=== PATIENT | female | born 1995 | race Caucasian/White ===

== ENCOUNTER 2017-11-12 04:40 | Inpatient (IN) | payer BC ==
[~2017-11-12] VITALS: Ht 160 cm; Wt 70.0 kg
[~2017-11-12 04:40] MED LIST: ZOFRAN4 MG PO
[2017-11-12 05:12] LABS: HEMATOCRIT 35.2 % (36.0-46.0); HEMOGLOBIN 11.9 G/DL (11.9-15.5); MCHC 33.8 G/DL (30.0-36.0); MCV 85.9 FL (83-99); PLATELET COUNT 213 K/uL (156-360); RBC DIS.WIDTH-CV 13.2 % (11.8-14.6); RBC DIS.WIDTH-SD 41.2 % (39-53); WHITE BLOOD COUNT 7.6 K/uL (4.1-10.2)
[2017-11-12 05:46] LABS: QUANTITATIVE HCG < 4.0 MIU/ML
[2017-11-12 05:58] LABS: CHLORIDE 104 mEq/L (99-109); POTASSIUM 3.8 mEq/L (3.7-5.4); SODIUM 137 mEq/L (136-147)
[2017-11-12 06:00] LABS: GLUCOSE 123 mg/dL (70-99)
[2017-11-12 06:02] LABS: TOTAL BILIRUBIN 1.1 mg/dL (0.0-1.0)
[2017-11-12 06:03] LABS: ALKALINE PHOSPHATASE 60 IU/L (3-129); CREATININE 0.8 mg/dL (0.6-1.3); GFR ESTIMATE (CALCULATED) > 59 mL/min/
[2017-11-12 06:05] LABS: AST (GOT) 14 IU/L (2-34); UREA NITROGEN (BUN) 12 mg/dL (9-23)
[2017-11-12 06:06] LABS: ALT (GPT) 12 IU/L (3-49)
[2017-11-12 06:07] LABS: LIPASE 17 U/L (1.0-51.0)
[2017-11-12 07:22] LABS: APPEARANCE SL.HAZY ((CLEAR)); BILIRUBIN NEGATIVE; BLOOD NEGATIVE; COLOR YELLOW ((YELLOW)); GLUCOSE (STRIP) NEGATIVE; KETONES 5; LEUKOCYTES TRACE; NITRITE NEGATIVE; PROTEIN (STRIP) 30; SPECIFIC GRAVITY 1.042 (1.000-1.030); UROBILINOGEN 0.2 MG/DL (0.2-1.0)
[2017-11-12 07:39] LABS: BACTERIA NONE SEEN /HPF; EPITHELIAL CELLS 1+ /HPF; MUCUS 2+ /LPF; RED BLOOD CELLS 0-5 /HPF (0-5); UCUL ADDED? YES
[2017-11-12] MEDS ORDERED: ADVIL200 MG PO (07:40)
[2017-11-12 13:34] VITALS: BP 107/69
[2017-11-12 15:16] VITALS: BP 109/60
[2017-11-12 20:20] VITALS: BP 113/60
[2017-11-12 23:38] VITALS: BP 107/61
[2017-11-13 03:48] VITALS: BP 110/60
[2017-11-13 07:02] LABS: HEMATOCRIT 28.5 % (36.0-46.0); MCH 28.3 PG (29.0-34.0); MCHC 31.9 G/DL (30.0-36.0); MCV 88.8 FL (83-99); PLATELET COUNT 189 K/uL (156-360); RBC DIS.WIDTH-CV 13.6 % (11.8-14.6); RBC DIS.WIDTH-SD 44.4 % (39-53); WHITE BLOOD COUNT 13.3 K/uL (4.1-10.2)
[2017-11-13 07:05] LABS: HEMOGLOBIN 9.1 G/DL (11.9-15.5); RED BLOOD COUNT 3.21 M/uL (3.80-5.20)
[2017-11-13 08:37] VITALS: BP 99/56
[2017-11-13 12:00] VITALS: BP 112/63
[2017-11-13 16:02] VITALS: BP 106/64
[2017-11-13 19:47] VITALS: BP 118/67
[2017-11-13 23:22] VITALS: BP 118/61
[2017-11-14 03:36] VITALS: BP 119/56
[2017-11-14 06:46] LABS: BASOPHIL (%) 0.2 % (0-1); EOSINOPHIL (%) 3.9 % (0-5); EOSINOPHIL COUNT 0.4 K/uL (0-0.3); HEMATOCRIT 31.6 % (36.0-46.0); HEMOGLOBIN 10.3 G/DL (11.9-15.5); IMMATURE GRANULOCYTE (%) 0.3 % (0.0-0.7); LYMPHOCYTE COUNT 1.4 K/uL (1.0-2.8); MCH 28.5 PG (29.0-34.0); MCHC 32.6 G/DL (30.0-36.0); MCV 87.3 FL (83-99); MONOCYTE (%) 5.9 % (3-12); MONOCYTE COUNT 0.6 K/uL (0-0.8); NEUTROPHIL (%) 76.7 % (45-76); NEUTROPHIL COUNT 8.2 K/uL (1.8-6.4); PLATELET COUNT 230 K/uL (156-360); RBC DIS.WIDTH-CV 13.5 % (11.8-14.6); RBC DIS.WIDTH-SD 43.8 % (39-53); RED BLOOD COUNT 3.62 M/uL (3.80-5.20); WHITE BLOOD COUNT 10.6 K/uL (4.1-10.2)
[2017-11-14 09:07] VITALS: BP 103/62
[2017-11-14 16:34] VITALS: BP 114/56
[2017-11-14 20:52] LABS: APPEARANCE CLEAR ((CLEAR)); BILIRUBIN NEGATIVE; BLOOD NEGATIVE; COLOR YELLOW ((YELLOW)); GLUCOSE (STRIP) NEGATIVE; KETONES 20; LEUKOCYTES NEGATIVE; NITRITE NEGATIVE; PROTEIN (STRIP) NEGATIVE; SPECIFIC GRAVITY 1.019 (1.000-1.030); UCUL ADDED? NO; UROBILINOGEN 0.2 MG/DL (0.2-1.0)
[2017-11-15 00:03] VITALS: BP 118/66
[2017-11-15 07:20] LABS: BASOPHIL (%) 0.3 % (0-1); EOSINOPHIL (%) 7.2 % (0-5); EOSINOPHIL COUNT 0.5 K/uL (0-0.3); HEMATOCRIT 30.5 % (36.0-46.0); HEMOGLOBIN 9.9 G/DL (11.9-15.5); IMMATURE GRANULOCYTE (%) 0.4 % (0.0-0.7); LYMPHOCYTE (%) 20.8 % (15-42); LYMPHOCYTE COUNT 1.4 K/uL (1.0-2.8); MCH 28.1 PG (29.0-34.0); MCHC 32.5 G/DL (30.0-36.0); MCV 86.6 FL (83-99); MONOCYTE (%) 7.2 % (3-12); MONOCYTE COUNT 0.5 K/uL (0-0.8); NEUTROPHIL (%) 64.1 % (45-76); NEUTROPHIL COUNT 4.4 K/uL (1.8-6.4); PLATELET COUNT 225 K/uL (156-360); RBC DIS.WIDTH-CV 13.5 % (11.8-14.6); RBC DIS.WIDTH-SD 42.3 % (39-53); RED BLOOD COUNT 3.52 M/uL (3.80-5.20); WHITE BLOOD COUNT 6.9 K/uL (4.1-10.2)
[2017-11-15 07:42] LABS: CHLORIDE 106 MEQ/L (99-109); CREATININE 0.7 MG/DL (0.6-1.3); GFR ESTIMATE (CALCULATED) > 59 mL/min/; GLUCOSE 86 mg/dL (70-99); MAGNESIUM 1.8 mg/dl (1.3-2.7); POTASSIUM 3.8 MEQ/L (3.7-5.4); SODIUM 140 MEQ/L (136-147); UREA NITROGEN (BUN) 7 mg/dL (9-23)
[2017-11-15 09:14] VITALS: BP 126/64
[2017-11-15] MEDS ORDERED: HYDROCODON-ACE1 EA11 PO (10:53)
[2017-11-15] MEDS ORDERED: AUGMENTIN875 MG PO (10:53)
[2017-11-15 13:19] LABS: C DIFF TOXIN NEGATIVE (NEGATIVE)
[2017-11-15 15:40] VITALS: BP 127/81
== END 2017-11-15 18:35 | disposition home or self-care (01) | DRG 339 ==
LOC: EME 04:40 → ENRESERV 09:49 → SDC 09:56 → ENRESERV 09:56 → 2SOUTH 10:02 → ENRESERV 11:29 → 2EAST 13:00
PROVIDERS: Surgery
PROC: 0DTJ0ZZ Resection of Appendix, Open Approach (ICD-10-PCS; principal; 2017-11-12)
DX: K35.3 Acute appendicitis with localized peritonitis (principal); K56.7 Ileus, unspecified; N39.0 Urinary tract infection, site not specified
CPT/HCPCS: 74177; 80048; 80053; 81003; 83690; 83735; 84702; 85025; 85027; 87070; 87075; 87086; 87205; 87493; 88304; 88341 TC; 88342 TC; G0378; J0290; J0696; J1100; J1170; J1885; J2250; J2405; J2765; J7030; J7050; J7120; S0020; S0030; S0074